=== PATIENT | male | born 1945 | race African-American/Black ===

== ENCOUNTER 2024-07-15 00:23 | Emergency (ER) | payer MEDICARE, MEDICAID ==
[~2024-07-15] VITALS: Ht 172.7 cm; Wt 82.0 kg
[2024-07-15 00:27] VITALS: TEMP 36.7; O2SAT 98
[2024-07-15] MEDS: SODIUM CHLORIDE 0.9% 1,000 ML IV ONE (01:59)
[2024-07-15 02:01] LABS: BASOPHILS % 0.7 % (0.0-2.0); EOSINOPHILS % 4.5 % (0.0-5.0); HEMOGLOBIN. 16.7 g/dL (14.0-18.0); LYMPHOCYTES % 37.4 % (20.0-50.0); MEAN CORPUSCULAR HEMOGLOBIN 30.8 pg (28.0-32.0); MEAN CORPUSCULAR HGB CONC 34.8 g/dL (31.0-37.0); MEAN CORPUSCULAR VOLUME 88.5 fL (80.0-94.0); MEAN PLATELET VOLUME 8.6 fl (7.4-10.4); MONOCYTES % 5.6 % (2.0-8.0); NEUTROPHILS % 51.8 % (40.0-76.0); PLATELET 250 x1000/uL (130-400); RED BLOOD CELL COUNT 5.43 mill/uL (4.7-6.1); WHITE BLOOD COUNT 2.9 x1000/uL (4.5-11.0)
[2024-07-15 02:29] LABS: CARBON DIOXIDE 32 mEq/L (21-32); CHLORIDE 99 mEq/L (98-107); POTASSIUM 5.9 mEq/L (3.5-5.1); SODIUM 137 mEq/L (136-145)
[2024-07-15 02:30] LABS: CALCIUM 9.9 mg/dL (8.7-10.4)
[2024-07-15 02:34] LABS: CREATININE 1.2 mg/dL (0.6-1.3)
[2024-07-15 02:35] LABS: GLUCOSE 128 mg/dL (70-105); UREA NITROGEN BLOOD 17 mg/dL (9-23)
[2024-07-15 02:37] LABS: BETA HYDROXYBUTYRATE 0.4 mMol/L (0.0-0.3)
[2024-07-15 04:01] VITALS: BP 125/82; PULSE 82; RESP 15; O2SAT 98
== END 2024-07-15 04:02 | disposition home or self-care (01) ==
LOC: ER 00:23
DX: E11.65 Type 2 diabetes mellitus with hyperglycemia (principal); I10 Essential (primary) hypertension
CPT/HCPCS: 99284; 80048; 82010; 82962; 83735; 85025; 36415; 93005; J7030

== ENCOUNTER 2024-08-10 20:22 | Emergency (ER) | payer MEDICARE, MEDICAID ==
[~2024-08-10] VITALS: Ht 177.8 cm; Wt 63.0 kg
[2024-08-10 20:24] VITALS: O2SAT 97
[2024-08-10] MEDS: SODIUM CHLORIDE 0.9% 1,000 ML IV ONE (21:11)
[2024-08-10 21:13] LABS: BASOPHILS % 0.9 % (0.0-2.0); EOSINOPHILS % 1.1 % (0.0-5.0); HEMATOCRIT. 42.9 % (42.0-52.0); HEMOGLOBIN. 14.6 g/dL (14.0-18.0); LYMPHOCYTES % 25.6 % (20.0-50.0); MEAN CORPUSCULAR HGB CONC 34.1 g/dL (31.0-37.0); MEAN CORPUSCULAR VOLUME 90.9 fL (80.0-94.0); MEAN PLATELET VOLUME 8.3 fl (7.4-10.4); MONOCYTES % 11.3 % (2.0-8.0); NEUTROPHILS % 61.1 % (40.0-76.0); PLATELET 259 x1000/uL (130-400); RED BLOOD CELL COUNT 4.72 mill/uL (4.7-6.1); RED CELL DISTRIBUTION WIDTH 16.1 % (11.6-14.6); WHITE BLOOD COUNT 4.4 x1000/uL (4.5-11.0)
[2024-08-10 21:20] LABS: CHLORIDE 102 mEq/L (98-107); POTASSIUM 3.8 mEq/L (3.5-5.1); SODIUM 143 mEq/L (136-145)
[2024-08-10 21:21] LABS: CARBON DIOXIDE 35 mEq/L (21-32)
[2024-08-10 21:22] LABS: CALCIUM 9.8 mg/dL (8.7-10.4); INR 0.9; PROTHROMBIN TIME 10.1 sec (9.6-11.0)
[2024-08-10 21:27] LABS: CREATININE 1.4 mg/dL (0.6-1.3); GLUCOSE 81 mg/dL (70-105); TROPONIN I HIGH SENSITIVITY 27 ng/L (3.0-53); UREA NITROGEN BLOOD 18 mg/dL (9-23)
[2024-08-11 08:33] VITALS: BP 145/84; PULSE 89; RESP 15; TEMP 36.6; O2SAT 98
== END 2024-08-11 08:43 | disposition home or self-care (01) ==
LOC: ER 20:22
DX: R55 Syncope and collapse (principal); E86.0 Dehydration; E11.9 Type 2 diabetes mellitus without complications; I10 Essential (primary) hypertension
CPT/HCPCS: 99285; 70450; 71045; 80048; 85025; 85610; 84484; 36415; 93005; 82962; J7030; A4606

== ENCOUNTER 2024-10-19 22:23 | Inpatient (IN) | payer MEDICARE, MEDICAID ==
[~2024-10-19] VITALS: Ht 180.3 cm; Wt 63.7 kg
[~2024-10-19 22:23] MED LIST: LIP40 PO; METO25TA6 PO; RIVA20TA PO
[2024-10-19] MEDS: SODIUM CHLORIDE 0.9% 1,000 ML IV ONE (22:58)
[2024-10-19 23:03] LABS: BASOPHILS % 1.2 % (0.0-2.0); EOSINOPHILS % 3.5 % (0.0-5.0); HEMATOCRIT. 47.4 % (42.0-52.0); HEMOGLOBIN. 16.4 g/dL (14.0-18.0); LYMPHOCYTES % 52.2 % (20.0-50.0); MEAN CORPUSCULAR HEMOGLOBIN 31.2 pg (28.0-32.0); MEAN CORPUSCULAR HGB CONC 34.5 g/dL (31.0-37.0); MEAN CORPUSCULAR VOLUME 90.3 fL (80.0-94.0); MEAN PLATELET VOLUME 9.8 fl (7.4-10.4); NEUTROPHILS % 37.1 % (40.0-76.0); PLATELET 220 x1000/uL (130-400); RED BLOOD CELL COUNT 5.25 mill/uL (4.7-6.1); RED CELL DISTRIBUTION WIDTH 14.3 % (11.6-14.6); WHITE BLOOD COUNT 5.1 x1000/uL (4.5-11.0)
[2024-10-19 23:08] LABS: DIFFERENTIAL COMMENT 1
[2024-10-19 23:13] LABS: CHLORIDE 104 mEq/L (98-107); POTASSIUM 4.7 mEq/L (3.5-5.1); SODIUM 140 mEq/L (136-145)
[2024-10-19 23:14] LABS: CALCIUM 9.3 mg/dL (8.7-10.4); CARBON DIOXIDE 25 mEq/L (21-32)
[2024-10-19 23:19] LABS: GLUCOSE 168 mg/dL (70-105)
[2024-10-19 23:20] LABS: ETHANOL BLOOD < 10 mg/dL (<10); TROPONIN I HIGH SENSITIVITY 28 ng/L (3.0-53); UREA NITROGEN BLOOD 19 mg/dL (9-23)
[2024-10-19 23:21] LABS: CREATINE KINASE 103 IU/L (46-171)
[2024-10-19 23:30] LABS: CREATININE 1.4 mg/dL (0.6-1.3)
[2024-10-19] MEDS: IOHEXOL-350 100 ML BOTTLE ONE (23:34)
[2024-10-19 23:42] LABS: LACTIC ACID 2.1 mmol/L (0.4-2.0)
[2024-10-19 23:57] LABS: BG BASE EXCESS 0.2 mmol/L (-2.0-3.0); BG CARBOXYHEMOGLOBIN 0.8 % (0.5-1.5); BG DEOXYHEMOGLOBIN 3.9 % (0.0-5.0); BG FRACTION INSPIRED OXYGEN 21; BG HCO3 ACT 24.6 mmol/L (21.0-28.0); BG METHEMOGLOBIN 0.2 % (0.5-1.5); BG OXYGEN SATURATION 96.1 % (94.0-98.0); BG OXYHEMOGLOBIN 95.1 % (94.0-98.0); BG PCO2 39.2 mmHg (35.0-48.0); BG PH 7.416 (7.350-7.450); BG PO2 79.3 mmHg (83.0-108.0); BG SAMPLE SITE RIGHT RADIAL; BG TOTAL HEMOGLOBIN 15.7 g/dL (13.5-17.5); BG VENT MODE ROOM AIR
[2024-10-19 23:57] LABS: ALANINE AMINOTRANSFERASE 31 IU/L (10-49); ALBUMIN 3.8 g/dL (3.2-4.8); ASPARTATE AMINOTRANSFERASE 42 IU/L (<34)
[2024-10-19 23:58] LABS: BILIRUBIN DIRECT 0.2 mg/dL (<=3.0); BILIRUBIN TOTAL 0.9 mg/dL (0.1-1.0); PROTEIN TOTAL 6.9 g/dL (6.0-8.3)
[2024-10-20] VITALS (7 sets, daily range): BP systolic 100–167; BP diastolic 62–110; PULSE 84–102; RESP 17–19; TEMP 36.2–36.8; O2SAT 96–100
[2024-10-20 00:10] LABS: AMMONIA < 17 uMol/L (<32)
[2024-10-20 00:14] LABS: PROTHROMBIN TIME 10.7 sec (9.6-11.0)
[2024-10-20] MEDS: SODIUM CHLORIDE 0.9% (SEPSIS BOLUS) IV ONE (00:45)
[2024-10-20] MEDS: CEFTRIAXONE 1GM/50ML 50 ML IV ONE (00:51)
[2024-10-20 02:22] LABS: CLARITY URINE CLEAR (CLEAR); COLOR URINE YELLOW (YELLOW); GLUCOSE URINE 3+ (NEGATIVE); KETONES URINE NEGATIVE (NEGATIVE); LEUKOCYTE ESTERASE URINE NEGATIVE (NEGATIVE); NITRITE URINE NEGATIVE (NEGATIVE); OCCULT BLOOD URINE NEGATIVE (NEGATIVE); PROTEIN URINE NEGATIVE (NEGATIVE); SPECIFIC GRAVITY URINE 1.041 (1.005-1.030)
[2024-10-20] MEDS ORDERED: DEXTROSE 50% WATER 50ML SYRINGE IV PRN (02:30)
[2024-10-20] MEDS ORDERED: ONDANSETRON HCL 4MG/2ML INJ IV PRN (02:30)
[2024-10-20] MEDS ORDERED: ACETAMINOPHEN 325MG TABLET PO PRN (02:30)
[2024-10-20] MEDS ORDERED: IPRATROPIUM/ALBUTEROL 0.5-3(2.5)MG/3ML NEB HHN PRN (02:30)
[2024-10-20 03:05] LABS: *AMPHETAMINES SCREEN URINE NEGATIVE (NEGATIVE); *BARBITURATES SCREEN URINE NEGATIVE (NEGATIVE); *BENZODIAZEPINES SCREEN URINE NEGATIVE (NEGATIVE); *COCAINE SCREEN URINE NEGATIVE (NEGATIVE); CANNABINOID URINE SCREEN NEGATIVE (NEGATIVE); ECSTASY MDMA SCREEN URINE NEGATIVE (NEGATIVE); METHADONE URINE SCREEN NEGATIVE (NEGATIVE); OPIATES URINE SCREEN NEGATIVE (NEGATIVE); PHENCYCLIDINE URINE SCREEN NEGATIVE (NEGATIVE)
[2024-10-20 03:12] LABS: PHOSPHORUS 2.6 mg/dL (2.5-4.9)
[2024-10-20 05:05] LABS: VITAMIN B12 SERUM 520 pg/mL (211-911)
[2024-10-20] MEDS: HYDRALAZINE 20MG/ML VIAL IV PRN (06:30)
[2024-10-20] MEDS: SODIUM CHLORIDE 0.9% 1,000 ML IV SCH (06:31)
[2024-10-20 07:05] LABS: BACTERIA URINE NONE SEEN; RBC URINE 0-2 /hpf (0-2); SQUAMOUS EPITHELIAL CELL URINE NONE SEEN /lpf (RARE/1+); WBC URINE 0-2 /hpf (0-2)
[2024-10-20] MEDS: BLOOD SUGAR DIAGNOSTIC STRIP TEST SCH (07:56)
[2024-10-20] MEDS: INSULIN LISPRO 100 UNITS/ML SUBCUT SCH ×2 (08:01→13:30)
[2024-10-20] MEDS: METOPROLOL TARTRATE 25MG TABLET PO SCH (08:24)
[2024-10-20] MEDS: PANTOPRAZOLE SODIUM 40 MG/VIAL IV SCH (08:52)
[2024-10-20] MEDS: INSULIN GLARGINE 100 UNITS/ML SUBCUT SCH (10:16)
[2024-10-20 11:46] LABS: CREATINE KINASE 64 IU/L (46-171)
[2024-10-20 11:47] LABS: CREATINE KINASE MB FRACTION 1.1 ng/mL (0.5-3.6); TROPONIN I HIGH SENSITIVITY 27 ng/L (3.0-53)
[2024-10-20 12:00] LABS: CHLORIDE 106 mEq/L (98-107); POTASSIUM 3.5 mEq/L (3.5-5.1); SODIUM 141 mEq/L (136-145)
[2024-10-20 12:01] LABS: CARBON DIOXIDE 29 mEq/L (21-32)
[2024-10-20 12:02] LABS: CALCIUM 8.8 mg/dL (8.7-10.4)
[2024-10-20 12:06] LABS: CREATININE 1.2 mg/dL (0.6-1.3); GLUCOSE 238 mg/dL (70-105); UREA NITROGEN BLOOD 18 mg/dL (9-23)
[2024-10-20 13:23] LABS: BASOPHILS % 0.4 % (0.0-2.0); EOSINOPHILS % 3.5 % (0.0-5.0); HEMATOCRIT. 44.4 % (42.0-52.0); HEMOGLOBIN. 15.2 g/dL (14.0-18.0); LYMPHOCYTES % 33.1 % (20.0-50.0); MEAN CORPUSCULAR HGB CONC 34.2 g/dL (31.0-37.0); MEAN CORPUSCULAR VOLUME 90.5 fL (80.0-94.0); MEAN PLATELET VOLUME 9.1 fl (7.4-10.4); MONOCYTES % 7.2 % (2.0-8.0); NEUTROPHILS % 55.8 % (40.0-76.0); PLATELET 200 x1000/uL (130-400); RED CELL DISTRIBUTION WIDTH 14.3 % (11.6-14.6); WHITE BLOOD COUNT 3.3 x1000/uL (4.5-11.0)
[2024-10-20] MEDS: ACETAMINOPHEN 325MG TABLET PO PRN (14:36)
[2024-10-20] MEDS: ENOXAPARIN 40MG/0.4ML SYR SUBCUT SCH (16:21)
[2024-10-20] MEDS: ASPIRIN 81MG TABLET PO SCH (16:23)
[2024-10-20 17:03] LABS: CREATINE KINASE MB FRACTION 1.3 ng/mL (0.5-3.6)
[2024-10-20] MEDS: ATORVASTATIN CALCIUM 40MG TABLET PO SCH (21:07)
[2024-10-21] VITALS (7 sets, daily range): BP systolic 71–167; BP diastolic 46–107; PULSE 83–102; RESP 18–20; TEMP 36.2–36.6; O2SAT 95–98
[2024-10-21 06:55] LABS: CALCIUM 8.6 mg/dL (8.7-10.4); CARBON DIOXIDE 26 mEq/L (21-32); CHLORIDE 107 mEq/L (98-107); POTASSIUM 3.7 mEq/L (3.5-5.1); SODIUM 139 mEq/L (136-145)
[2024-10-21 07:01] LABS: ALBUMIN 3.1 g/dL (3.2-4.8); CREATININE 0.9 mg/dL (0.6-1.3); GLUCOSE 261 mg/dL (70-105); UREA NITROGEN BLOOD 16 mg/dL (9-23)
[2024-10-21 07:20] LABS: BASOPHILS % 0.6 % (0.0-2.0); EOSINOPHILS % 4.8 % (0.0-5.0); HEMATOCRIT. 40.2 % (42.0-52.0); HEMOGLOBIN. 13.9 g/dL (14.0-18.0); LYMPHOCYTES % 40.6 % (20.0-50.0); MEAN CORPUSCULAR HEMOGLOBIN 30.9 pg (28.0-32.0); MEAN CORPUSCULAR HGB CONC 34.7 g/dL (31.0-37.0); MEAN CORPUSCULAR VOLUME 89.3 fL (80.0-94.0); MEAN PLATELET VOLUME 9.1 fl (7.4-10.4); MONOCYTES % 6.7 % (2.0-8.0); NEUTROPHILS % 47.3 % (40.0-76.0); PLATELET 182 x1000/uL (130-400); RED CELL DISTRIBUTION WIDTH 14.3 % (11.6-14.6); WHITE BLOOD COUNT 2.7 x1000/uL (4.5-11.0)
[2024-10-21] MEDS: AMLODIPINE 10MG TABLET PO SCH (09:21)
[2024-10-21] MEDS: HYDRALAZINE HCL 50MG TABLET PO SCH (14:31)
[2024-10-21] MEDS: INSULIN GLARGINE 100 UNITS/ML SUBCUT SCH (23:20)
[2024-10-22] VITALS (7 sets, daily range): BP systolic 104–141; BP diastolic 68–86; PULSE 90–102; RESP 15–18; TEMP 35.9–36.8; O2SAT 97–100
[2024-10-22 06:27] LABS: BASOPHILS % 0.4 % (0.0-2.0); DIFFERENTIAL COMMENT 0; HEMATOCRIT. 41.5 % (42.0-52.0); HEMOGLOBIN. 14.6 g/dL (14.0-18.0); LYMPHOCYTES % 39.2 % (20.0-50.0); MEAN CORPUSCULAR HEMOGLOBIN 31.4 pg (28.0-32.0); MEAN CORPUSCULAR HGB CONC 35.3 g/dL (31.0-37.0); MEAN PLATELET VOLUME 9.1 fl (7.4-10.4); NEUTROPHILS % 50.4 % (40.0-76.0); PLATELET 183 x1000/uL (130-400); RED BLOOD CELL COUNT 4.67 mill/uL (4.7-6.1); RED CELL DISTRIBUTION WIDTH 14.7 % (11.6-14.6); WHITE BLOOD COUNT 3.3 x1000/uL (4.5-11.0)
[2024-10-22 06:51] LABS: CARBON DIOXIDE 28 mEq/L (21-32); CHLORIDE 105 mEq/L (98-107); POTASSIUM 3.7 mEq/L (3.5-5.1); SODIUM 139 mEq/L (136-145)
[2024-10-22 06:53] LABS: CALCIUM 8.6 mg/dL (8.7-10.4)
[2024-10-22 06:57] LABS: CREATININE 0.8 mg/dL (0.6-1.3); GLUCOSE 255 mg/dL (70-105)
[2024-10-22 06:58] LABS: UREA NITROGEN BLOOD 12 mg/dL (9-23)
[2024-10-22 07:11] LABS: TROPONIN I HIGH SENSITIVITY 80 ng/L (3.0-53)
[2024-10-22] MEDS: ASPIRIN 81MG EC TABLET PO SCH (10:12)
[2024-10-22] MEDS: CLOPIDOGREL 75MG TABLET PO SCH (10:12)
[2024-10-22] MEDS ORDERED: HYDR50TA39 PO ×2 (12:57→17:02)
[2024-10-22] MEDS ORDERED: ASPI-1406 PO (12:57)
[2024-10-22] MEDS ORDERED: LANTUSUD SUBCUT ×2 (12:57→17:02)
[2024-10-22] MEDS ORDERED: CLOP-31 PO (12:57)
[2024-10-23] MEDS: HYDRALAZINE HCL 50MG TABLET PO SCH (07:47)
[2024-10-23 08:00] VITALS: BP 117/71; PULSE 78; RESP 16; TEMP 36.3; O2SAT 96
[2024-10-23] MEDS: AMLODIPINE 10MG TABLET PO SCH (08:41)
[2024-10-23 09:05] VITALS: BP 125/72; PULSE 92
[2024-10-23] MEDS: FLUDROCORTISONE ACETATE 0.1MG TABLET PO SCH (10:11)
[2024-10-23 12:00] VITALS: BP 126/74; PULSE 89; RESP 16; TEMP 36.6; O2SAT 96
[2024-10-23 14:16] VITALS: BP 126/74; PULSE 89; TEMP 97.8; O2SAT 96
[2024-10-23] MEDS ORDERED: METO25TA6 PO (14:54)
[2024-10-23] MEDS ORDERED: FLUD0.1T MT (14:54)
[2024-10-23] MEDS ORDERED: AMLO2.5T45 MT (14:54)
[2024-10-23] MEDS ORDERED: CLOP-31 PO (14:54)
[2024-10-23] MEDS ORDERED: ASPI-1406 PO (14:54)
[2024-10-23] MEDS ORDERED: LIP40 PO (14:54)
[2024-10-23 16:00] VITALS: PULSE 91; RESP 18; TEMP 36.3; O2SAT 97
[2024-10-24] MEDS ORDERED: FLUDROCORTISONE ACETATE 0.1MG TABLET PO SCH (09:00)
[2024-10-24] MEDS ORDERED: AMLODIPINE 2.5MG TABLET PO SCH (09:00)
== END 2024-10-23 16:30 | disposition home health service (06) | DRG 641 ==
LOC: ER 22:23 → 6WST 10-20 02:09 → MICUSO 10-23 14:50 → 6WST 10-23 14:53
PROVIDERS: ADMIT Internal Medicine; ATTEND Internal Medicine
DX: E86.0 Dehydration (principal); N17.9 Acute kidney failure, unspecified; E86.1 Hypovolemia; I95.1 Orthostatic hypotension; E87.20 Acidosis, unspecified; I65.22 Occlusion and stenosis of left carotid artery; G51.0 Bell's palsy; E78.5 Hyperlipidemia, unspecified; N18.9 Chronic kidney disease, unspecified; E11.22 Type 2 diabetes mellitus with diabetic chronic kidney disease; E11.65 Type 2 diabetes mellitus with hyperglycemia; G89.29 Other chronic pain; I12.9 Hypertensive chronic kidney disease with stage 1 through stage 4 chronic kidney disease, or unspecified chronic kidney disease; M17.12 Unilateral primary osteoarthritis, left knee; Z79.01 Long term (current) use of anticoagulants; Z79.02 Long term (current) use of antithrombotics/antiplatelets; Z79.4 Long term (current) use of insulin; Z79.52 Long term (current) use of systemic steroids; Z79.82 Long term (current) use of aspirin; Z79.899 Other long term (current) drug therapy; Z86.718 Personal history of other venous thrombosis and embolism
CPT/HCPCS: 36415; 36600; 70496; 70498; 71045; 80048; 80061; 80076; 80305; 80320; 81003; 82040; 82140; 82375; 82550; 82553; 82607; 82805; 82962; 83036; 83605; 83735; 83880; 84100; 84145; 84484; 85025; 86850; 86900; 93005; 93306; 93970; 97110; 97116; 97162; 97166; 97530; 99291; A4606; J0360; J0696; J1650; J1815; J2470; J7030; Q9967; G0480